=== PATIENT | male | born 2000 | race African-American/Black ===

== ENCOUNTER 2020-01-02 19:54 | Emergency (ER) | payer OTHER ==
[2020-01-02] MEDS ORDERED: Ketorolac Tromethamine 60 MG/2 ML VIAL ONE (20:07)
== END 2020-01-02 20:12 ==
LOC: NAV ERS 19:54
DX: M25.511 Pain in right shoulder (principal); X50.9XXA Other and unspecified overexertion or strenuous movements or postures, initial encounter
CPT/HCPCS: 96372; J1885